=== PATIENT | female | born 1965 | race Caucasian/White ===

== ENCOUNTER 2021-08-11 21:30 | Inpatient (IN) | payer OTHER, SELFPAY ==
[2021-08-12] MEDS ORDERED: Acetaminophen 325 MG TAB PO PRN (01:09)
[2021-08-12] MEDS ORDERED: Ondansetron PF 4 MG/2 ML Vial IVP PRN (01:09)
[2021-08-12] MEDS ORDERED: Potassium Chloride 20 MEQ TAB PO SCH (01:15)
[2021-08-12 01:32] VITALS: BMI 21.4
[2021-08-12] MEDS ORDERED: Albuterol Sulfate 2.5 mg/3 ml Neb NEB PRN (06:52)
[2021-08-12] MEDS ORDERED: Albuterol 200 PUFF (6.7GM INHALER) INH PRN (06:54)
[2021-08-12 07:20] LABS: Anion Gap 10 mmol/L (10-20); BUN (Urea Nitrogen) 9 mg/dL (9.8-20.1); Calc. Creatinine Clearance 100 mL/min (70-130); Calcium 9.3 mg/dL (7.8-10.44); Carbon Dioxide 31 mmol/L (22-29); Chloride 103 mmol/L (98-107); Glucose 145 mg/dL (70-105); Magnesium 2.1 mg/dL (1.6-2.6); Potassium 4.2 mmol/L (3.5-5.1); Sodium 140 mmol/L (136-145)
[2021-08-12 07:37] LABS: #Lymphocytes 0.5 thou/uL (1.20-3.40); #Monocytes 0.1 thou/uL (0.11-0.59); #Neutrophils 1.2 thou/uL (1.40-6.50); %Eosinophils 0.2 % (0.0-10.0); %Lymphocytes 28.7 % (21.0-51.0); %Monocytes 5.4 % (0.0-10.0); %Neutrophils 65.8 % (42.0-75.0); Band 8 % (5-11); Hemoglobin 13.9 g/dL (12.0-16.0); Lymphocytes 24 % (21-51); MDiff Complete? YES; Mean Corpuscular HGB CONC 33.4 g/dL (32.0-36.0); Mean Corpuscular Hemoglobin 31.6 pg (27.0-31.0); Mean Corpuscular Volume 94.6 fL (78.0-98.0); Mean Platelet Volume 7.9 fL (7.4-10.4); Monocytes 4 % (0-10); Neutrophil 64 % (42-75); Platelet Count 280 thou/uL (130-400); Platelet Morphology Comment Appears Adequate; Polychromasia SLIGHT = 2-3 cells (100X) (0-2/hpf); RBC Distribution Width 12.5 % (11.5-14.5); Reflex for Review?? YES; White Blood Cell (WBC) Count 1.9 thou/uL (4.8-10.8)
[2021-08-12] MEDS: Dexamethasone 10 MG/ML VIAL SLOW IVP SCH (08:07)
[2021-08-12] MEDS: Ascorbic Acid 500 mg Chewable Tablet PO SCH (08:08)
[2021-08-12] MEDS: Zinc Sulfate 220 MG CAP PO SCH (08:08)
[2021-08-12] MEDS: Enoxaparin Sodium 40 MG/0.4 ML SYRINGE SC SCH ×2 (08:09→20:45)
[2021-08-12] MEDS: Famotidine 20 MG TAB PO SCH ×2 (08:10→20:45)
[2021-08-13 06:50] LABS: #Lymphocytes 1.1 thou/uL (1.20-3.40); #Monocytes 0.5 thou/uL (0.11-0.59); #Neutrophils 4.8 thou/uL (1.40-6.50); %Eosinophils 0.1 % (0.0-10.0); %Lymphocytes 16.9 % (21.0-51.0); Hemoglobin 13.1 g/dL (12.0-16.0); Mean Corpuscular HGB CONC 32.5 g/dL (32.0-36.0); Mean Corpuscular Hemoglobin 31.1 pg (27.0-31.0); Mean Corpuscular Volume 95.7 fL (78.0-98.0); Mean Platelet Volume 7.9 fL (7.4-10.4); Platelet Count 314 thou/uL (130-400); RBC Distribution Width 12.7 % (11.5-14.5); Red Blood Cell (RBC) Count 4.22 mill/uL (4.20-5.40); White Blood Cell (WBC) Count 6.4 thou/uL (4.8-10.8)
[2021-08-13 07:07] LABS: Anion Gap 13 mmol/L (10-20); BUN (Urea Nitrogen) 12 mg/dL (9.8-20.1); CRP (Inflammatory) 0.53 mg/dL (= or < 0.5); Calc. Creatinine Clearance 94 mL/min (70-130); Calcium 8.6 mg/dL (7.8-10.44); Carbon Dioxide 27 mmol/L (22-29); Chloride 105 mmol/L (98-107); Glucose 111 mg/dL (70-105); Potassium 4.2 mmol/L (3.5-5.1); Sodium 141 mmol/L (136-145)
[2021-08-13 07:34] VITALS: BP 111/59; TEMP 97.3
[2021-08-13] MEDS: Dexamethasone 10 MG/ML VIAL SLOW IVP SCH (08:02)
[2021-08-13] MEDS: Ascorbic Acid 500 mg Chewable Tablet PO SCH (08:02)
[2021-08-13] MEDS: Zinc Sulfate 220 MG CAP PO SCH (08:02)
[2021-08-13] MEDS: Enoxaparin Sodium 40 MG/0.4 ML SYRINGE SC SCH (08:09)
[2021-08-13] MEDS: Famotidine 20 MG TAB PO SCH (08:09)
== END 2021-08-13 17:25 | disposition home or self-care (01) | DRG 177 ==
LOC: T4-A 08-12 00:45
PROVIDERS: ADMIT Internal Medicine; ATTEND Internal Medicine
PROC: 3E0333Z Introduction of Anti-inflammatory into Peripheral Vein, Percutaneous Approach (ICD-10-PCS; principal; 2021-08-12)
PROC: 8E0ZXY6 Isolation (ICD-10-PCS; 2021-08-12)
DX: U07.1 COVID-19 (principal); J96.01 Acute respiratory failure with hypoxia; I10 Essential (primary) hypertension; E78.5 Hyperlipidemia, unspecified; I73.9 Peripheral vascular disease, unspecified; F41.9 Anxiety disorder, unspecified; F17.210 Nicotine dependence, cigarettes, uncomplicated; E87.6 Hypokalemia; J44.9 Chronic obstructive pulmonary disease, unspecified; Z91.018 Allergy to other foods; Z79.82 Long term (current) use of aspirin; Z79.899 Other long term (current) drug therapy
CPT/HCPCS: 36415; 71275; 80048; 83735; 85025; 85060; 86140; J1100

== ENCOUNTER 2023-02-26 08:12 | Outpatient (CLI) | payer OTHER ==
[2023-02-26] MEDS ORDERED: Iopamidol-370 76% 500 ML MDV (1 ML CHARGE) ONE (12:45)
== END 2023-02-26 08:13 | disposition home or self-care (01) ==
LOC: BICCT 08:12
PROVIDERS: ATTEND Thoracic Surgery (Cardiothoracic Vascular Surgery)
DX: I70.213 Atherosclerosis of native arteries of extremities with intermittent claudication, bilateral legs (principal); K55.1 Chronic vascular disorders of intestine; I77.89 Other specified disorders of arteries and arterioles
CPT/HCPCS: 75635; 82565; Q9967

== ENCOUNTER 2024-07-11 12:12 | Outpatient (CLI) | payer OTHER | END 2024-07-11 12:13 | disposition home or self-care (01) | LOC: CT 12:12 | PROVIDERS: ATTEND Internal Medicine | DX: R91.1 Solitary pulmonary nodule (principal) | CPT/HCPCS: 71250 ==